=== PATIENT | male | born 1960 | race Caucasian/White ===

== ENCOUNTER 2018-10-16 19:01 | Emergency (ER) | payer SELFPAY ==
[~2018-10-16] VITALS: Ht 195.6 cm; Wt 100.0 kg
[2018-10-16] MEDS ORDERED: ESCI10TA10 PO (19:12)
[2018-10-16] MEDS ORDERED: GABA300C10 PO (19:13)
--- NOTE | 2018-10-16 19:59 | NUR ---
ASSISTING PRIMARY, URINE COLLECTED/ORDERED/SENT TO LAB.
[2018-10-16 20:12] LABS: MICROSCOPIC NOT IND
[2018-10-16 20:15] LABS: BASOPHILS # (AUTO) 0.03 x10^3/uL (0-0.1); BASOPHILS % (AUTO) 0 % (0-1); EOSINOPHILS # (AUTO) 0.15 x10^3/uL (0-0.4); EOSINOPHILS % (AUTO) 2 % (1-7); LYMPHOCYTES # (AUTO) 1.66 x10^3/uL (1-3.4); LYMPHOCYTES % (AUTO) 19 % (22-44); MD NO; MEAN CORPUSCULAR HEMOGLOBIN 31.9 pg (27.5-34.5); MEAN CORPUSCULAR VOLUME 96.8 fL (81-97); MEAN PLATELET VOLUME 8.5 fL (7.4-10.4); MONOCYTES # (AUTO) 0.78 x10^3/uL (0.2-0.8); MONOCYTES % (AUTO) 9 % (2-9); NEUTROPHILS # (AUTO) 6.33 x10^3/uL (1.8-6.8); NEUTROPHILS % (AUTO) 71 % (42-75); PLATELET COUNT 222 x10^3/uL (130-400); RED BLOOD COUNT 5.35 x10^6/uL (4.38-5.82); RED CELL DISTRIBUTION WIDTH 13.4 % (9.4-14.8)
[2018-10-16 20:19] LABS: CULTURE INDICATED? NO
[2018-10-16 20:26] LABS: CHLORIDE 106 mmol/L (98-107)
[2018-10-16 20:42] LABS: ALBUMIN 3.6 g/dL (3.4-5.0); ANION GAP 9 mmol/L (5-15); CALCIUM 9.4 mg/dL (8.5-10.1); CREATININE 0.93 mg/dL (0.7-1.3)
[2018-10-16 22:05] VITALS: BP 133/82
== END 2018-10-16 22:07 ==
LOC: ED 19:07
DX: R53.1 Weakness (principal); R53.83 Other fatigue
CPT/HCPCS: 36415; 80048; 81003; 82040; 85025; 99285